=== PATIENT | female | born 1990 | race Asian ===

== ENCOUNTER 2017-05-26 13:45 | Outpatient (CLI) | payer OTHER ==
[2017-05-26] MEDS ORDERED: GADOBUTROL 10 MMOL/10 ML VIAL ONE (14:31)
--- NOTE | 2017-05-26 16:08 | MRI Preliminary Report ---
Exam: MRI Brain W/WO IMPRESSION: 1. 10 mm ill-defined signal abnormality at the junction of the head and body of the left caudate nucl eus. Imaging characteristics suggest subacute infarct (1-3 weeks in age). Follow-up examination in 3 months time may be of value to assess for expected evolution of infarct and exclude underlying mass l esion. 2. Normal MRI of the IAC and posterior fossa. 3. Prominence to right sigmoid sinus. Bony dehiscence through the posterior mastoid portion of the te mporal bone to the level of the EAC is seen. [facility] SITE ID: [id number]
--- NOTE | 2017-05-26 16:21 | MRI Report ---
EXAM: MRI BRAIN AND INTERNAL AUDITORY CANAL (IAC), WITHOUT AND WITH CONTRAST. EXAM DATE: 05/26/2017 03:12 PM. CLINICAL HISTORY: Persistent severe vertigo. COMPARISON: None. TECHNIQUE: Multiplanar, multisequence T1-weighted and fluid-sensitive MRI sequences of the brain and IACs were performed. Other: None. IV Contrast: 10 mL Gadavist. FINDINGS: Brain Volume: Normal for age. Parenchyma/Dura: An ill-defined 10 mm focus of signal abnormality is seen at the junction of the head and body of the left caudate nucleus. This demonstrates decreased T1 with increased T2 and FLAIR sig nal. Faint increased diffusion and ADC map signal is present. No abnormal enhancement. No white matte r lesions identified.No areas of restricted diffusion to suggest acute infarct. No definite abnormal areas of susceptibility artifact. No abnormal post-contrast enhancement. Pituitary: Normal. Internal Auditory Canals (IACs): Normal. No cranial nerve lesion or inflammatory process identified. The inner ears structures are symmetric and unremarkable. Ventricles/Cisterns: No definite abnormal extra-axial fluid collection/mass seen. Ventricles and sulc i appear age appropriate. Cisterns are patent. Fluid is seen within Meckel's caves. Sinuses: Visualized paranasal sinuses appear clear. Poor pneumatization of peripheral mastoid air juan jose ls is seen. Partial opacification is seen involving posterolateral superior left mastoid air cells. Orbits: Normal. Vasculature: Visualized major intracranial flow voids appear maintained. Dural sinuses appear patent. The right transverse sinus and jugular bulb are dominant. There is apparent dehiscence at the level of the right sigmoid sinus through the posterior mastoid portion of the temporal bone to the level of the posterior aspect of the EAC. Bones: Normal. Other: None. IMPRESSION: 1. 10 mm ill-defined signal abnormality at the junction of the head and body of the left caudate nucl eus. Imaging characteristics suggest subacute infarct (1-3 weeks in age). Follow-up examination in 3 months' time may be of value to assess for expected evolution of infarct and exclude underlying mass lesion. 2. Normal MRI of the IAC and posterior fossa. 3. Prominence to right sigmoid sinus. Bony dehiscence through the posterior mastoid portion of the te mporal bone to the level of the EAC is seen. [facility] Referring Provider Line: [phone] SITE ID: [id number]
== END 2017-05-26 13:46 | disposition home or self-care (01) ==
LOC: DI 13:45
PROVIDERS: ATTEND Family Medicine
DX: R90.89 Other abnormal findings on diagnostic imaging of central nervous system (principal)
CPT/HCPCS: 70553; A9585

== ENCOUNTER 2017-08-18 09:51 | Observation (INO) | payer OTHER ==
[2017-08-18 10:55] LABS: BASOPHILS % (AUTO) 0.5 %; EOSINOPHILS # (AUTO) 0.4 10^3/uL (0.0-0.7); EOSINOPHILS % (AUTO) 5.5 %; HCT - HEMATOCRIT 36.8 % (37.0-47.0); HGB - HEMOGLOBIN 12.9 g/dL (12.0-16.0); LYMPHOCYTES # (AUTO) 1.7 10^3/uL (1.5-3.5); LYMPHOCYTES % (AUTO) 23.5 %; MEAN CORPUSCULAR VOLUME 83.1 fL (81.0-99.0); MONOCYTES # (AUTO) 0.5 10^3/uL (0.0-1.0); MONOCYTES % (AUTO) 6.6 %; NEUTROPHILS # (AUTO) 4.7 10^3/uL (1.5-6.6); NEUTROPHILS % (AUTO) 63.9 %; RED BLOOD COUNT 4.43 10^6/uL (4.20-5.40); RED CELL DISTRIBUTION WIDTH 12.4 % (12.0-15.0); UNCORRECTED WHITE BLOOD COUNT 7.3 x10^3/uL; WHITE BLOOD COUNT 7.3 x10^3/uL (4.8-10.8)
[2017-08-18 11:05] LABS: CALCIUM 8.4 mg/dL (8.5-10.3); CREATININE 0.9 mg/dL (0.4-1.0)
--- NOTE | 2017-08-18 11:11 | ED Physician Documentation ---
History of Present Illness - Stated complaint Stated Complaint: R HEAD NUMBNESS - Chief complaint Chief Complaint: Neuro - Additonal information Additional information: hx from pt 27 female hypertensive hx CVA the fall - followed by neuro Dr Erwin (? spelling) at [facility] has MRI MRA carotid dopplers and tele and no cause found do presumed 2/2 HTN and now on asa and enalapril same sx started again last night - altered sensation to R face ear and scalp and less so to R arm no weakness no speech hearing or new vision problems has not spoken to her neuro about this episode Review of Systems Constitutional: denies: Fever Eyes: denies: Loss of vision Ears: denies: Loss of hearing Cardiac: denies: Chest pain / pressure, Palpitations Respiratory: denies: Dyspnea GI: denies: Abdominal Pain Neurologic: reports: Numbness. denies: Focal weakness, Difficulty speaking, Headache, Head injury Endocrine: denies: Easy bruising / bleeding Immunocompromised: denies: Immunocompromised PD PAST MEDICAL HISTORY - Past Medical History Cardiovascular: Hypertension Neuro: Other - Past Surgical History Past Surgical History: Yes HEENT: Tonsil/Adenoidectomy - Present Medications Home Medications: Ambulatory Orders Medication Instructions Recorded Confirmed Amlodipine Besylate [Norvasc] 10 mg DAILY 09/12/15 08/18/17 Hydrocodone/Acetaminophen 1 - 2 each PO Q6H PRN #14 tablet 09/12/15 08/18/17 [Hydrocodon-Acetaminophen 5-325] Levofloxacin [Levaquin] 750 mg PO DAILY 5 Days tablet 09/12/15 08/18/17 Oseltamivir [Tamiflu] 75 mg PO BID #10 capsule 09/12/15 08/18/17 Sertraline HCl [Zoloft] 09/12/15 09/12/15 Aspirin 08/18/17 - Allergies Allergies/Adverse Reactions: Allergies Allergy/AdvReac Type Severity Reaction Status Date / Time Iodinated Contrast- Oral and Allergy Nausea Verified 08/18/17 10:04 IV Dye - Social History Does the pt smoke?: No Smoking Status: Never smoker Does the pt drink ETOH?: No Does the pt have substance abuse?: No - Immunizations Immunizations are current?: No PD ED PE NORMAL - Vitals Vital signs reviewed: Yes - General General: Alert and oriented X 3 - HEENT HEENT: PERRL, EOMI - Neck Neck: Supple, no meningeal sign - Cardiac Cardiac: RRR - Respiratory Respiratory: No respiratory distress, Clear bilaterally - Abdomen Abdomen: Soft, Non tender - Neuro Neuro: Alert and oriented X 3, flap presser 2-12 intact, No motor deficit, Normal speech. No: No sensory deficit (alreted R face and scalp) Eye Opening: Spontaneous Motor: Obeys Commands Verbal: Oriented GCS Score: 15 Results - Vitals Vitals: Vital Signs - 24 hr 08/18/17 08/18/17 08/18/17 10:06 10:53 12:16 Temperature 36.4 C L 36.8 C 36.5 C Heart Rate 70 77 69 Respiratory 16 15 18 Rate Blood Pressure 134/67 H 130/68 127/75 O2 Saturation 99 98 99 Oxygen O2 Source Room air - EKG (time done) 1044 Rate: Rate (enter#) (69) Rhythm: NSR [place]: Normal Intervals: Normal IN Ischemia: T wave inversion (V1 and biphasic V2) - Labs Labs: Laboratory Tests 08/18/17 08/18/17 08/18/17 10:50 10:50 10:50 WBC 7.3 RBC 4.43 Hgb 12.9 Hct 36.8 L MCV 83.1 MCH 29.0 MCHC 35.0 RDW 12.4 Plt Count 220 MPV 8.0 Neut # 4.7 Lymph # 1.7 Platte # 0.5 Eos # 0.4 Baso # 0.0 Absolute Nucleated RBC 0.00 Nucleated RBC % 0.0 PT 11.6 INR 1.0 Sodium 133 L Potassium 4.0 Chloride 105 Carbon Dioxide 23 Anion Gap 5.0 L BUN 16 Creatinine 0.9 Estimated GFR (MDRD) 75 L Glucose 141 H Calcium 8.4 L Serum HCG, Qual 08/18/17 10:50 WBC RBC Hgb Hct MCV MCH MCHC RDW Plt Count MPV Neut # Lymph # Platte # Eos # Baso # Absolute Nucleated RBC Nucleated RBC % PT INR Sodium Potassium Chloride Carbon Dioxide Anion Gap BUN Creatinine Estimated GFR (MDRD) Glucose Calcium Serum HCG, Qual NEGATIVE - Rads (name of study) CTH Radiology: See rad report (no acute infarct, faint vis of prior infarct) PD MEDICAL DECISION MAKING - ED course ED course: recurrent stroke sx in a pt with prior stroke CT neg outside TPA window will admit for MRI etc spoke to hospitalist at 1335 Departure - Departure Disposition: ED Place in Observation Clinical Impression: Numbness Condition: Good NIHSS - Time Time: 11:00 - Level of Consciousness Level of consciousness: (0) Alert, Keenly responsive LOC Questions: (0) Answers both Q's correct - Gaze Best Gaze: (0) Normal - Visual Visual: (0) No loss - Facial Palsy Facial Palsy: (0) Normal, symmetrical movement - Motor Arms (both separate) Motor Arm (right): (0) No drift Motor Arm (left): (0) No drift - Motor Legs (both separate) Motor Leg (right): (0) No drift Motor Leg (left): (0) No drift - Limb Ataxia Limb Ataxia: (0) Absent - Sensory Sensory: (1) Teqm-df-tmogwloh loss - Best Language Best Language: (0) No aphasia - Dysarthria Dysarthria: (0) Normal - Extinction and Inattention (formally neg Extinction and inattention: (0) No abnormality
[2017-08-18 11:13] LABS: PT - PROTHROMBIN TIME 11.6 secs (9.9-12.6)
[2017-08-18 12:17] VITALS: BP 127/75
--- NOTE | 2017-08-18 12:26 | CT Preliminary Report ---
Exam: CT HEAD W/O IMPRESSION: 1. No acute infarct, no acute bleed. 2. There may be faint visualization of the previous left basal ganglia infarct [facility] SITE ID: [id number]
--- NOTE | 2017-08-18 12:28 | CT Report ---
EXAM: CT HEAD EXAM DATE: 08/18/2017 12:04 PM. CLINICAL HISTORY: CVA sx, hx CVA, doubts preg but plz wait for HCG. COMPARISON: 05/26/2017. TECHNIQUE: Multiaxial CT images were obtained from the foramen magnum to the vertex. Reformats: Coron al. IV contrast: None. In accordance with CT protocol optimization, one or more of the following dose reduction techniques w ere utilized for this exam: automated exposure control, adjustment of mA and/or KV based on patient s ize, or use of iterative reconstructive technique. FINDINGS: Parenchyma: No intraparenchymal hemorrhage . Area of infarct left basal ganglia may be faintly visibl e. No evidence of mass, midline shift, or CT findings of acute infarction. Mark-white differentiation is distinct. Extraaxial Spaces: Normal for age. No subdural or epidural collections identified. Ventricles: Normal in size and position. Sinuses and Orbits: Imaged paranasal sinuses, orbits, and mastoids show no significant abnormality. Bones: Dehiscence at the right sigmoid sinus again identified No evidence of fracture or calvarial de fect. Other: None. IMPRESSION: 1. No acute infarct, no acute bleed. 2. There may be faint visualization of the previous left basal ganglia infarct [facility] Referring Provider Line: [phone] SITE ID: [id number]
[2017-08-18] MEDS ORDERED: ONDANSETRON ODT 4 MG TABLET TL PRN (14:10)
[2017-08-18] MEDS ORDERED: TEMAZEPAM 15 MG CAPSULE PO PRN (14:10)
[2017-08-18] MEDS ORDERED: ACETAMINOPHEN 325 MG TABLET PO PRN (14:10)
[2017-08-18] MEDS ORDERED: SODIUM CHLORIDE FLUSH 0.9% 10 ML SYRINGE IVP PRN (14:10)
[2017-08-18] MEDS ORDERED: ONDANSETRON 4 MG/2 ML VIAL IVP PRN (14:10)
[2017-08-18] MEDS ORDERED: SODIUM CHLORIDE 0.9% 1,000 ML IV SCH (15:00)
[2017-08-18] MEDS ORDERED: GADOBUTROL 10 MMOL/10 ML VIAL ONE (16:00)
[2017-08-18] MEDS ORDERED: GADOBUTROL 10 MMOL/10 ML VIAL IVP ONE (16:25)
--- NOTE | 2017-08-18 17:54 | MRI Report ---
EXAM: MRI BRAIN AND INTERNAL AUDITORY CANAL (IAC),WITHOUT AND WITH CONTRAST. EXAM DATE: 08/18/2017 04:57 PM. CLINICAL HISTORY: 27-year-old with right facial numbness and tingling COMPARISON: MR brain 05/26/2017. TECHNIQUE: Multiplanar, multisequence T1-weighted and fluid-sensitive MRI sequences of the brain and IACs were performed. Other: None. IV Contrast: 10 cc GADAVIST. FINDINGS: Brain Volume: Normal for age. Parenchyma/Dura: No acute parenchymal hemorrhage, mass, or midline shift.Again demonstrated is an ill -defined focus of T2/FLAIR signal hyperintensity with associated T1 signal hypointensity at the junct ion of the head of caudate calculus measuring up to 10 mm (series 1101, image 20) unchanged from 05/26. There is no associated enhancement. There is no due to signal hyperintensity or ADC signal hyp ointensity seen. There are additional scattered FLAIR signal hyperintensity seen involving the right and left anterior insula and left frontal lobe, and left posterior frontal lobe that are unchanged fr om 05/26/2017. No definite new T2/FLAIR signal hyperintense lesion seen. No areas restricted diffusion seen to suggest acute infarct. No areas of old hemorrhagic blood products seen. No abnormal postcont rast enhancement. Internal Auditory Canals (IACs): Normal. No cranial nerve lesion or inflammatory process identified. The inner ear structure are symmetric and unremarkable. Ventricles/Cisterns: No hydrocephalus. No abnormal extra-axial fluid collection or hemorrhage. Orbits: Symmetric and unremarkable. Sella Turcica: The pituitary gland, cavernous sinuses, suprasellar cistern and optic chiasm are unrem arkable. Vasculature: Normal signal flow void is seen in the major arterial structures at the skull base. Agai n seen is prominence of the right sigmoid sinus. Bony dehiscence through the posterior mastoid portio n of the temporal bone to the level of the EAC is again seen (series 1302, image 20). Sinuses: Left maxillary sinus mucosal retention cyst versus polyp. Left mastoid effusion. Middle ear cavities appear clear. Bones: No focal pathologic appearing marrow signal changes. Other: None. IMPRESSION: 1.No acute infarct, hemorrhage, hydrocephalus, midline shift, or abnormal postcontrast enhancement. 2.Again seen is a ill-defined nonenhancing FLAIR signal hyperintensity at the junction head and body of the left caudate nuclear set appears unchanged in size from 05/26/2017. Findings nonspecific and po tential etiologies include sequela of chronic small vessel ischemic disease, sequela of prior infecti ous/inflammatory process, or sequela of a demyelinating process. The possibility of a underlying glio ma is considered unlikely but not entirely excluded. 3. There are additional scattered punctate FLAIR signal abnormalities seen that appear similar to 05/01 and are nonspecific. Potential etiologies include sequela of chronic small vessel ischemic dis ease, sequela of prior infectious or inflammatory process, or sequela of prior toxic/metabolic proces s. 4. Normal MRI of the IAC and posterior fossa. 5. Again seen is prominence of the right sigmoid sinus. Bony dehiscence through the posterior mastoid portion of the temporal bone to the level of the EAC is again seen. [facility] Referring Provider Line: [phone] SITE ID: [id number]
--- NOTE | 2017-08-18 18:15 | DISCHARGE SUMMARY ---
Discharge Summary Admit Date: 08/18/17 Discharge Date: 08/18/17 Discharging Provider: ELSA Pearson Condition at Discharge: Good Discharge Disposition: 01 Home, Self Care - DIAGNOSES Admission Diagnoses: Anesthesia of skin (R20.0) Essential (primary) hypertension (I10) Morbid (severe) obesity due to excess calories (E66.01) Cerebral infarction, unspecified (I63.9) Discharge Diagnoses with Status of Each Condition: Anesthesia of skin (R20.0) improved, but ongoing and controlled. Essential (primary) hypertension (I10) ongoing, controlled with medications. Morbid (severe) obesity due to excess calories (E66.01) chronic, stable. Cerebral infarction, unspecified (I63.9) chronic, no new events. Sequela of cerebrovascular accident (I69.30) resolved, confirmed by imaging. - HPI History of Present Illness: Usha Ambriz is a 27 year old morbidly obese female with a past medical history of CVA on 05/26/17 without residual, and HTN, who was instructed by [facility], [place] neuro, Dr. Osborn to report to the nearest ED due to similar CVA symptoms which included right scalp, right facial, right ear and neck numbness and tingling. A CT scan and carotid doppler were completed in the ED and were both negative. Patient was admitted to observation for further evaluation including MRI of head and a phone call with updates as per Neuro request. - HOSPITAL COURSE Hospital Course: Patient was admitted just under observation status to await an MRI of her brain for ongoing right scalp, right face, without speech disturbance or other deficits. A call to primary neurology was made to up date MRI results, which showed no acute infarction or bleeds. Patient had ongoing neck tightness, likely from stress of being in the hospital, so a small dose of flexeril and PO narcotic was given to promote a resolution of her neck discomfort. No other medications were changed or added and patient was instructed to follow up with PCP in 3-5 days as a follow up to this stay. A work excuse note was given. Patient was anxious to be on her way and was taken home via private call in stable condition home with . - ALLERGIES Allergies/Adverse Reactions: Allergies Allergy/AdvReac Type Severity Reaction Status Date / Time Iodinated Contrast- Oral and Allergy Nausea Verified 08/18/17 10:04 IV Dye - MEDICATIONS Home Medications: Ambulatory Orders Medication Instructions Recorded Confirmed Sertraline HCl [Zoloft] 75 mg PO DAILY 09/12/15 08/18/17 Acetaminophen [Tylenol] 650 mg PO Q4HR PRN #0 tablet 08/18/17 Aspirin EC [Ecotrin] 325 mg PO DAILY #30 tablet 08/18/17 Carvedilol [Coreg] 25 mg PO DAILY 08/18/17 08/18/17 Cyclobenzaprine [Flexeril] 5 mg PO Q4H #20 tablet 08/18/17 Lisinopril [Prinivil] 20 mg PO DAILY 08/18/17 08/18/17 traMADol [Ultram] 50 mg PO Q6H PRN #20 tablet 08/18/17 - PHYSICAL EXAM AT DISCHARGE General Appearance: positive: No acute distress, Alert Eyes Bilateral: positive: Normal inspection, PERRL ENT: positive: ENT inspection nml, Pharynx nml, No signs of dehydration, Other ( fluid noted behind bilateral typmanic membranes.) Neck: positive: No JVD, Trachea midline, Lymphadenopathy (R), Lymphadenopathy (L ) (may be chronic due to neck circumferance.) Respiratory: positive: Chest non-tender, No respiratory distress, Breath sounds nml Cardiovascular: positive: Regular rate & rhythm, No murmur, No gallop Peripheral Pulses: positive: 2+ Abdomen: positive: Non-tender, Hepatomegaly, Splenomegaly, Abnml bowel sounds, Other (obese-chronic) Back: positive: Nml inspection Skin: positive: Color nml, No rash, Warm, Dry Extremities: positive: Non-tender, Full ROM, Nml appearance, No pedal edema Neurologic/Psychiatric: positive: Oriented x3, CN's nml (2-12), Motor nml, Sensation nml, Depressed mood/affect, Other (no physical neuro deficits on exam. ) Reflexes: Bicep (R): 3+, Bicep (L): 3+ - LABS Result Diagrams: 08/18/17 10:50 08/18/17 10:50 - DIAGNOSTIC IMAGING Diagnostic Imaging Results: Final report reviewed Diagnostic Imaging Results Comments: MRI brain: (results called to Dr. Abreu neuro) FINDINGS: Brain Volume: Normal for age. Parenchyma/Dura: No acute parenchymal hemorrhage, mass, or midline shift.Again demonstrated is an ill-defined focus of T2/FLAIR signal hyperintensity with associated T1 signal hypointensity at the junction of the head of caudate calculus measuring up to 10 mm (series 1101, image 20) unchanged from 2016. There is no associated enhancement. There is no due to signal hyperintensity or ADC signal hypointensity seen. There are additional scattered FLAIR signal hyperintensity seen involving the right and left anterior insula and left frontal lobe, and left posterior frontal lobe that are unchanged from . No definite new T2/FLAIR signal hyperintense lesion seen. No areas restricted diffusion seen to suggest acute infarct. No areas of old hemorrhagic blood products seen. No abnormal postcontrast enhancement. Internal Auditory Canals (IACs): Normal. No cranial nerve lesion or inflammatory process identified. The inner ear structure are symmetric and unremarkable. Ventricles/Cisterns: No hydrocephalus. No abnormal extra-axial fluid collection or hemorrhage. Orbits: Symmetric and unremarkable. Sella Turcica: The pituitary gland, cavernous sinuses, suprasellar cistern and optic chiasm are unremarkable. Vasculature: Normal signal flow void is seen in the major arterial structures at the skull base. Again seen is prominence of the right sigmoid sinus. Bony dehiscence through the posterior mastoid portion of the temporal bone to the level of the EAC is again seen (series 1302, image 20). Sinuses: Left maxillary sinus mucosal retention cyst versus polyp. Left mastoid effusion. Middle ear cavities appear clear. Bones: No focal pathologic appearing marrow signal changes. Other: None. IMPRESSION: 1.No acute infarct, hemorrhage, hydrocephalus, midline shift, or abnormal postcontrast enhancement. 2.Again seen is a ill-defined nonenhancing FLAIR signal hyperintensity at the junction head and body of the left caudate nuclear set appears unchanged in size from 05/26/2017. Findings nonspecific and potential etiologies include sequela of chronic small vessel ischemic disease, sequela of prior infectious/ inflammatory process, or sequela of a demyelinating process. The possibility of a underlying glioma is considered unlikely but not entirely excluded. 3. There are additional scattered punctate FLAIR signal abnormalities seen that appear similar to 05/26/2017 and are nonspecific. Potential etiologies include sequela of chronic small vessel ischemic disease, sequela of prior infectious or inflammatory process, or sequela of prior toxic/metabolic process. 4. Normal MRI of the IAC and posterior fossa. 5. Again seen is prominence of the right sigmoid sinus. Bony dehiscence through the posterior mastoid portion of the temporal bone to the level of the EAC is again seen. - FOLLOW UP Follow Up: I called [facility] on-call service and spoke with Dr. Lindsey to update her with MRI results that showed NO new ischemia, only sequela of previous events. This explains your symptoms, but I recommend changing the aspirin to a full dose of 325mg enteric coated daily. Please see your PCP as a follow up to this stay, speak to your PCP about checking a lipid panel, and deciding on prescribing a statin in light of this event. Blood pressure control is crucial, so staying on your medications is recommended. To ease your neck pain, I have given you a muscle relaxer and a mild narcotic. Please be careful about taking these together and definitely no driving while on these. Use either a heating pad or ice for relief. - TIME SPENT Time Spent in Discharge (Minutes): 60
--- NOTE | 2017-08-18 18:19 | Discharge Plan ---
Discharge Plan Disposition: Home, Self Care Condition: Good Prescriptions: Aspirin EC [Ecotrin] 325 mg PO DAILY #30 tablet Cyclobenzaprine [Flexeril] 5 mg PO Q4H #20 tablet traMADol [Ultram] 50 mg PO Q6H PRN #20 tablet PRN Reason: Pain Diet: Low Sodium Activity Restrictions: No Restrictions Shower Restrictions: No Driving Restrictions: No Weight Bearing: Full Weight Additional Instructions or Follow Up instructions: I called [facility] on-call service and spoke with Dr. Lindsey to update her with MRI results that showed NO new ischemia, only sequela of previous events. This explains your symptoms, but I recommend changing the aspirin to a full dose of 325mg enteric coated daily. Please see your PCP as a follow up to this stay, speak to your PCP about checking a lipid panel, and deciding on prescribing a statin in light of this event. Blood pressure control is crucial, so staying on your medications is recommended. To ease your neck pain, I have given you a muscle relaxer and a mild narcotic. Please be careful about taking these together and definitely no driving while on these. Use either a heating pad or ice for relief. No Smoking: If you smoke, Please STOP! Call for help. Follow-up with: Byron Marmolejo MD [Primary Care Provider] -
--- NOTE | 2017-08-18 19:16 | HISTORY & PHYSICAL EXAMINATION ---
Chief Complaint - Chief Complaint Chief Complaint: right facial numbness and tingling. Stroke/TIA/Neuro Template - Admitted From Admitted from: ED - History Obtained From Records Reviewed: RN notes reviewed, Old records reviewed History obtained from: Patient Exam limitations: No limitations - History of Present Illness Severity at the worst: reports: Moderate Symptom Quality: reports: Numbness, Tingling, Headache, Other (Burning sensation , neck pain.) Context- Symptoms started w/: reports: Unknown Timing: reports: Gradual onset Date of onset: 08/17/17 Time of onset: 19:00 (Onset was 20+ hours ago.) Improved with: reports: Nothing Worsened by: reports: Nothing HPI Comment/Other: Usha Ambriz is a 27 year old morbidly obese female with a past medical history of CVA on 05/26/17 without residual, and HTN, who was instructed by [facility] neuro, Dr. Osborn to report to the nearest ED due to similar CVA symptoms which included right scalp, right facial, right ear and neck numbness and tingling. A CT scan and carotid doppler were completed in the ED and were both negative. Patient was admitted to observation for further evaluation including MRI of head and a phone call with updates as per Neuro request. PMH/PSH - Past Medical History Cardiovascular: positive: Hypertension Respiratory: positive: None Neuro: positive: CVA (last episode 05/26/17), Headache/migraine, Other Endocrine/Autoimmune: positive: None (pre-diabetes.) GI: positive: None : positive: None HEENT: positive: None Psych: positive: Depression, Anxiety Musculoskeletal: positive: None Derm: positive: None MRSA Hx?: No - Past Surgical History HEENT: positive: Tonsil/Adenoidectomy Social & Family Hx - Living Situation Living Arrangement: At home Living Situation: With spouse/s.o. - Social History Does the pt smoke?: No Smoking Status: Never smoker Does the pt drink ETOH?: No Does the pt have substance abuse?: No - POLST Patient has POLST: No POLST Status: Full Code - Family History Family History: Mother: Alive and Well (2 brothers alive and well without chronic conditions.), Asthma, Father: Alive and Well, Renal Disease/Failure, Brother: Alive and Well Meds/Allgy - Home Medications Home Medications: Ambulatory Orders Medication Instructions Recorded Confirmed Sertraline HCl [Zoloft] 75 mg PO DAILY 09/12/15 08/18/17 Acetaminophen [Tylenol] 650 mg PO Q4HR PRN #0 tablet 08/18/17 Aspirin EC [Ecotrin] 325 mg PO DAILY #30 tablet 08/18/17 Carvedilol [Coreg] 25 mg PO DAILY 08/18/17 08/18/17 Cyclobenzaprine [Flexeril] 5 mg PO Q4H #20 tablet 08/18/17 Lisinopril [Prinivil] 20 mg PO DAILY 08/18/17 08/18/17 traMADol [Ultram] 50 mg PO Q6H PRN #20 tablet 08/18/17 - Allergies Allergies/Adverse Reactions: Allergies Allergy/AdvReac Type Severity Reaction Status Date / Time Iodinated Contrast- Oral and Allergy Nausea Verified 08/18/17 10:04 IV Dye Review of Systems - Eyes Eyes: reports: Corrective lenses - Ears, Nose & Throat Ears, Nose & Throat: reports: Ear pain (right) - Musculoskeletal Musculoskeletal: reports: Muscle aches (neck, scalp), Stiffness - Neurological Neurological: reports: Headache, Numbness (scalp and right face, without droop.) - All Other Systems All Other Systems: reports: Reviewed and negative Exam - Vital Signs Reviewed Vital Signs: Yes Vital Signs: Vital Signs x48h Temp Pulse Resp Pulse Ox 08/18/17 15:22 37.6 C H 73 18 99 - Physical Exam General Appearance: positive: No acute distress, Alert Eyes Bilateral: positive: Normal inspection, PERRL ENT: positive: ENT inspection nml, Pharynx nml, No signs of dehydration Neck: positive: Nml inspection, Thyroid nml, No JVD, Trachea midline Respiratory: positive: Chest non-tender, No respiratory distress, Breath sounds nml Cardiovascular: positive: Regular rate & rhythm, No murmur, No gallop Peripheral Pulses: positive: 2+ Abdomen: positive: Non-tender, No organomegaly, Nml bowel sounds, No distention Back: positive: Nml inspection Skin: positive: Color nml, No rash, Warm, Dry Extremities: positive: Non-tender, Full ROM, Nml appearance, No pedal edema Neurologic/Psychiatric: positive: Oriented x3, CN's nml (2-12), Motor nml, Sensation nml, Mood/affect nml Reflexes: Bicep (R): 3+ (equal), Bicep (L): 3+ Results - Lab Results Lab results reviewed: Yes Fish Bones: 08/18/17 10:50 08/18/17 10:50 - Diagnostic Imaging Results Diagnostic Imaging Results: positive: Final report reviewed - EKG Results EKG Interpreted Independently: Yes ARRA - Anticipated LOS Anticipated Stay Length: Less than 2 midnights - AMI - Statin at Admit Aspirin Prescribed on Admit: Yes - Stroke - Rehab Assessment Rehab services assessment to be ordered?: No Not Ordered - Medical Reason: Contraindicated - DVT/VTE - Prophylaxis VTE/DVT Device ordered at admit?: Yes VTE/DVT Prophylaxis med ordered at admit?: No Not Ordered - Medical Reason: Contraindicated Impression/Plan - Problem List Problem List: Anesthesia of skin (R20.0) Patient will be worked up to rule out a sequela of her previous CVA. Plan: MRI brain, neuro checks, orthostatic blood pressures, and labs. Essential (primary) hypertension (I10)- Patient is unfortunately already on 3 antihypertensives, with moderately controlled blood pressures. Plan: Monitor blood pressure and give extra medication if needed. Morbid (severe) obesity due to excess calories (E66.01)- Patient states she has never been lean, as this is a life long struggle. Patient has a current BMI of 43.7kg/m3. 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 Plan: Educate on increasing activity and encourage healthy food choices. Cerebral infarction, unspecified (I63.9)-Patient has a history of this and sees a neurologist. Contact was made earlier today, and they recommended patient seek medical attention if similar symptoms arise. Plan: Complete CVA work up and contact Neurology with updates. DVT prophylaxis with SCDs, enoxaparin SQ. Code status: FULL.
[2017-08-18] MEDS ORDERED: SODIUM CHLORIDE FLUSH 0.9% 10 ML SYRINGE IVP SCH (22:00)
[2017-08-19] MEDS ORDERED: PANTOPRAZOLE 40 MG TABLET PO SCH (07:00)
[2017-08-19] MEDS ORDERED: ENOXAPARIN 40 MG/0.4 ML SYRINGE SUBQ SCH (09:00)
[2017-08-19] MEDS ORDERED: POLYETHYLENE GLYCOL 3350 17 GM PACKET PO SCH (09:00)
== END 2017-08-18 18:25 | disposition home or self-care (01) ==
LOC: ED 09:51 → OBS 14:10
PROVIDERS: ADMIT Nurse Practitioner; ATTEND Nurse Practitioner
DX: R20.0 Anesthesia of skin (principal); R51 Headache; R20.2 Paresthesia of skin; M54.2 Cervicalgia; I10 Essential (primary) hypertension; F32.9 Major depressive disorder, single episode, unspecified; F41.9 Anxiety disorder, unspecified; E66.01 Morbid (severe) obesity due to excess calories; Z68.41 Body mass index [BMI] 40.0-44.9, adult; Z79.82 Long term (current) use of aspirin; Z79.899 Other long term (current) drug therapy; Z86.73 Personal history of transient ischemic attack (TIA), and cerebral infarction without residual deficits
CPT/HCPCS: 36415; 70450; 70553; 80048; 84703; 85025; 85610; 93005; 99218; 99284; A9585